=== PATIENT | male | born 1960 | race Caucasian/White ===

== ENCOUNTER 2017-03-09 23:48 | Inpatient (IN) ==
[2017-03-10 00:36] LABS: Bilirubin,Urine Negative (Negative); Blood,Urine Negative (Negative); Clarity,Urine Clear (Clear); Color,Urine Yellow (Yellow); Glucose,Urine (UA) Normal (Normal); Ketones,Urine Negative (Negative); Leukocyte Esterase,Urine Negative (Negative); Nitrite,Urine Negative (Negative); PH,Urine 5.5 pH Units (5.0-8.0); Protein,Urine Negative (Neg-Trace); Specific Gravity,Urine 1.028 (1.010-1.025); Urobilinogen,Urine Normal (Normal)
[2017-03-10 00:42] LABS: Amphetamine Screen,Urine Negative ng/mL (Cutoff=1000); Barbiturate Screen,Urine Negative ng/mL (Cutoff=200); Benzodiazepines Screen,Urine Negative ng/mL (Cutoff=200); Cannabinoid Screen,Urine Negative ng/mL (Cutoff = 50); Cocaine Screen,Urine Negative ng/mL (Cutoff= 300); Opiate Screen,Urine Negative ng/mL (Cutoff=300); Phencyclidine Screen,Urine Negative ng/mL (Cutoff=25)
[2017-03-10 00:44] LABS: Basophils # 0.1 K/mcL (0.0-0.2); Basophils % 0.9 %; Eosinophils # 0.1 K/mcL (0.0-0.6); Eosinophils % 1.7 %; Hematocrit 41.1 % (37.5-50.1); Hemoglobin 13.1 g/dL (12.9-16.9); Immature Granulocytes % 0.4 % (0-4); Lymphocytes # 1.9 K/mcL (0.6-4.6); Lymphocytes % 27.8 %; Mean Corpuscular HGB Conc 31.9 g/dL (31.6-35.5); Mean Corpuscular Hemoglobin 27.7 pg (28.0-33.3); Mean Corpuscular Volume 86.9 fL (83.0-100.0); Mean Platelet Volume 9.5 fL (9.4-12.4); Monocytes # 0.6 K/mcL (0.0-1.3); Monocytes % 8.9 %; Neutrophils # 4.2 K/mcL (1.6-8.9); Platelet Count 415 K/mcL (140-400); Red Blood Count 4.73 M/mcL (4.19-5.50); Red Cell Distribution Width 12.5 % (11.5-14.5); Segmented Neutrophils % 60.3 %
[2017-03-10 00:58] LABS: BUN/Creatinine Ratio 15 (6-26); Blood Urea Nitrogen 17 mg/dL (8-26); Carbon Dioxide 24 mEq/L (19-29); Chloride 108 mEq/L (98-109); Glucose 116 mg/dL (70-99); Osmolality,Calculated 295 (280-300); Potassium 4.1 mEq/L (3.5-4.5); Sodium 141 mEq/L (136-145); eGFR For African Americans > 60 (> 60); eGFR For Non-African Americans > 60 (> 60)
[2017-03-10 01:15] LABS: Acetaminophen < 1.0 mcg/mL (10-30); Ethanol < 10 mg/dL (0-10); Salicylate < 5.0 mg/dL (15-30)
--- NOTE | 2017-03-10 01:32 | Emergency Department Note ---
Disposition Clinical Impression: Suicidal ideation Depression Qualifiers: Depression Type: unspecified Qualified Code(s): F32.9 - Major depressive disorder, single episode, unspecified Disposition: Admitted As Inpatient Condition: Good Time of Disposition: 05:51 Psych HPI - General Chief Complaint: ED Psychiatric Symptoms Stated Complaint: "SI" Time Seen by Provider: 03/09/17 23:51 Source: patient Nursing Notes Reviewed: Yes Vital Signs Reviewed: Yes - History of Present Illness Pt complaint: suicidal ideation If medical clearance, reason: psychiatric condition Onset (ago): hour(s) Duration: constant History of similar episodes: No Improves with: none Worsens with: none Context: significant life stressor (bankruptcy) Alleged intoxication: No Associated Psychiatric Symptoms: depression, suicidal ideation Associated symptoms: Reports: denies other symptoms Traumatic symptoms: denies traumatic injury Treatments prior to arrival: none Self harm or harm to others: admits thoughts of self harm, has plan (Carbon monoxide car fumes in his garage) - Related Data Home Medications Medication Instructions Recorded Confirmed Aspirin 81 mg PO DAILY 04/24/16 04/24/16 Bupropion HCl [Wellbutrin Xl] 300 mg PO QAM 04/24/16 04/24/16 FLUoxetine HCl [PROzac] 20 mg PO DAILY 04/24/16 04/24/16 Lisinopril/Hydrochlorothiazide 1 tab PO DAILY 04/24/16 04/24/16 [Zestoretic 20-12.5 mg Tablet] Simvastatin [Zocor] 20 mg PO HS 04/24/16 04/24/16 metFORMIN [Glucophage] 500 mg PO BIDWM 04/24/16 04/24/16 Allergies Allergy/AdvReac Type Severity Reaction Status Date / Time No Known Allergies Allergy Verified 04/24/16 07:26 All systems ED: reviewed and negative except as stated. Constitutional: Denies: fever, chills Eyes: Denies: eye discharge ENT ED: Denies: throat pain Cardiovascular: Denies: palpitations Respiratory: Denies: dyspnea Gastrointestinal: Denies: abdominal pain, nausea, vomiting Genitourinary: Denies: dysuria Musculoskeletal: Denies: back pain Integumentary: Reports: rash (chronic (forearms and scalp)) Neurological: Denies: headache Psychiatric: Reports: as per HPI, depression, suicidal thoughts Endocrine: Denies: fatigue Past Medical History - Past Medical History Medical history: Reports: hyperlipidemia, hypertension Psychiatric history: Reports: depression - Social History Smoking Status: Never smoker Smokeless Tobacco Status: No Alcohol use: Reports: none Drug use: Reports: none Physical Exam HEAD: atraumatic, normocephalic EYE: EOM intact, no conjunctival injection ENT: mucous membranes moist, voice normal in character, nose normal in appearance, no rhinorrhea NECK: supple, normal ROM without stiffness CHEST: symmetric chest wall rise RESPIRATORY: Present: normal lung sounds bilaterally, no respiratory distress CARDIOVASCULAR: Regular rhythm and rate ABDOMINAL EXAM: No evidence of abdominal discomfort or peritoneal signs; Absent : guarding, rebound, distention EXTREMITIES: Grossly unremarkable on simple inspection; no deformities or decreased ROM; Absent: BLE edema BACK: Absent: CVA tenderness (R), CVA tenderness (L) NEURO: Present: alert, reflexes normal - General Limitations: no limitations General appearance: alert, in no apparent distress - Neurological Exam Neurological exam: Present: alert, oriented X3 - Psychiatric Psychiatric exam: Present: normal affect, depressed, suicidal ideation - Skin Skin exam: Present: warm, dry, intact, normal color, rash - Expanded Skin Exam Type of lesion: Present: other (Erythematous papular rash over sensitive surface of forearms, appears chronic; silvery scaly erythematous rash over her scalp consistent with psoriasis) Course Course Narrative: Patient is a 57-year-old male nonsmoker with no history of depression presents with suicidal ideation. He states he had attempted to clean out his garage to move his car and in order to fall asleep from the carbon monoxide fumes. He change his mind and decided to discuss this with her set work. Nursing reports that is sent from his work site here for psychiatric evaluation. On examination he is alert and oriented 3. Does have a dry scaly rash to scalp psoriasis over his hairline. He also has erythematous papular rash on his forearms, which he states is chronic appearing for months, related to his blood pressure medications. He states that he had stopped taking them while out of town and his rash improved. He has seen his family doctor for the rash. He denies any noncompliance with his psychiatric medications. On exam patient is alert and oriented 3. No acute distress. I will attempt to medically clear him for psychiatric evaluation. Vital Signs Temperature 97.8 F 03/09/17 23:51 Pulse Rate 87 03/09/17 23:51 Respiratory Rate 18 03/09/17 23:51 Blood Pressure 162/63 03/09/17 23:51 O2 Sat by Pulse Oximetry 98 03/09/17 23:51 Temperature 98.0 F 03/10/17 03:08 Pulse Rate 94 03/09/17 23:51 Respiratory Rate 14 03/10/17 03:08 Blood Pressure 125/81 03/10/17 03:08 O2 Sat by Pulse Oximetry 98 03/09/17 23:51 Oxygen Delivery Oxygen Delivery Room Air Psych - MDM Narrative Medical decision making narrative: Patient was medically cleared, and evaluated by [facility] staff who had discussed patient with Dr. Nelson, who advised for inpatient admission for further evaluation and stabilization. Patient was pink slipped. Vitals within normal limits. - Lab Data Result diagrams: 03/10/17 00:30 03/10/17 00:30 Lab Results 03/10/17 03/10/17 03/10/17 Range/Units 00:25 00:25 00:30 WBC 7.0 (4.3-11.1) K/mcL RBC 4.73 (4.19-5.50) M/mcL Hgb 13.1 (12.9-16.9) g/dL Hct 41.1 (37.5-50.1) % MCV 86.9 (83.0-100.0) fL MCH 27.7 L (28.0-33.3) pg MCHC 31.9 (31.6-35.5) g/dL RDW 12.5 (11.5-14.5) % Plt Count 415 H (140-400) K/mcL MPV 9.5 (9.4-12.4) fL Immature Gran % 0.4 (0-4) % Seg Neutrophils % 60.3 % Lymphocytes % 27.8 % Monocytes % 8.9 % Eosinophils % 1.7 % Basophils % 0.9 % Neutrophils # 4.2 (1.6-8.9) K/mcL Lymphocytes # 1.9 (0.6-4.6) K/mcL Monocytes # 0.6 (0.0-1.3) K/mcL Eosinophils # 0.1 (0.0-0.6) K/mcL Basophils # 0.1 (0.0-0.2) K/mcL Sodium (136-145) mEq/L Potassium (3.5-4.5) mEq/L Chloride (98-109) mEq/L Carbon Dioxide (19-29) mEq/L BUN (8-26) mg/dL Creatinine (0.72-1.25) mg/dL Est GFR ( Amer) (> 60) Est GFR (Non-Af Amer) (> 60) BUN/Creatinine Ratio (6-26) Glucose (70-99) mg/dL Calculated Osmolality (280-300) Calcium (8.6-10.8) mg/dL Urine Color Yellow (Yellow) Urine Clarity Clear (Clear) Urine pH 5.5 (5.0-8.0) pH Units Ur Specific [place] 1.028 H (1.010-1.025) Urine Protein Negative (Neg-Trace) mg/dL Urine Glucose (UA) Normal (Normal) mg/dL Urine Ketones Negative (Negative) mg/dL Urine Blood Negative (Negative) Urine Nitrite Negative (Negative) Urine Bilirubin Negative (Negative) Urine Urobilinogen Normal (Normal) mg/dL Ur Leukocyte Esterase Negative (Negative) Salicylates (15-30) mg/dL Urine Opiates Screen Negative (Mxinhj=828) ng/mL Acetaminophen (10-30) mcg/mL Ur Barbiturates Screen Negative (Jwtvqp=366) ng/mL Ur Phencyclidine Scrn Negative (Cutoff=25) ng/mL Ur Amphetamines Screen Negative (Mndrio=1968) ng/mL U Benzodiazepines Scrn Negative (Scnwgt=408) ng/mL Urine Cocaine Screen Negative (Cutoff= 300) ng/mL U Marijuana (THC) Screen Negative (Cutoff = 50) ng/mL Ethyl Alcohol (0-10) mg/dL 03/10/17 Range/Units 00:30 WBC (4.3-11.1) K/mcL RBC (4.19-5.50) M/mcL Hgb (12.9-16.9) g/dL Hct (37.5-50.1) % MCV (83.0-100.0) fL MCH (28.0-33.3) pg MCHC (31.6-35.5) g/dL RDW (11.5-14.5) % Plt Count (140-400) K/mcL MPV (9.4-12.4) fL Immature Gran % (0-4) % Seg Neutrophils % % Lymphocytes % % Monocytes % % Eosinophils % % Basophils % % Neutrophils # (1.6-8.9) K/mcL Lymphocytes # (0.6-4.6) K/mcL Monocytes # (0.0-1.3) K/mcL Eosinophils # (0.0-0.6) K/mcL Basophils # (0.0-0.2) K/mcL Sodium 141 (136-145) mEq/L Potassium 4.1 (3.5-4.5) mEq/L Chloride 108 (98-109) mEq/L Carbon Dioxide 24 (19-29) mEq/L BUN 17 (8-26) mg/dL Creatinine 1.17 (0.72-1.25) mg/dL Est GFR ( Amer) > 60 (> 60) Est GFR (Non-Af Amer) > 60 (> 60) BUN/Creatinine Ratio 15 (6-26) Glucose 116 H (70-99) mg/dL Calculated Osmolality 295 (280-300) Calcium 9.0 (8.6-10.8) mg/dL Urine Color (Yellow) Urine Clarity (Clear) Urine pH (5.0-8.0) pH Units Ur Specific [place] (1.010-1.025) Urine Protein (Neg-Trace) mg/dL Urine Glucose (UA) (Normal) mg/dL Urine Ketones (Negative) mg/dL Urine Blood (Negative) Urine Nitrite (Negative) Urine Bilirubin (Negative) Urine Urobilinogen (Normal) mg/dL Ur Leukocyte Esterase (Negative) Salicylates < 5.0 L (15-30) mg/dL Urine Opiates Screen (Zrzkod=802) ng/mL Acetaminophen < 1.0 L (10-30) mcg/mL Ur Barbiturates Screen (Oadbvt=777) ng/mL Ur Phencyclidine Scrn (Cutoff=25) ng/mL Ur Amphetamines Screen (Kudxuz=6760) ng/mL U Benzodiazepines Scrn (Vrctlf=367) ng/mL Urine Cocaine Screen (Cutoff= 300) ng/mL U Marijuana (THC) Screen (Cutoff = 50) ng/mL Ethyl Alcohol < 10 (0-10) mg/dL Psychiatric Medical Clearance - Medical Clearance Checklist Medical History: No Social History Section defined Current Vitals: Last Vital Signs Temp 98.0 F 03/10/17 03:08 Pulse 94 03/09/17 23:51 Resp 14 03/10/17 03:08 BP 125/81 03/10/17 03:08 Pulse Ox 98 03/09/17 23:51 Psychiatric Lab Panel: Drug Levels and Toxicity 03/10/17 03/10/17 00:25 00:30 Urine Opiates Screen Negative Acetaminophen < 1.0 L Ur Barbiturates Screen Negative Ur Phencyclidine Scrn Negative Ur Amphetamines Screen Negative U Benzodiazepines Scrn Negative Urine Cocaine Screen Negative U Marijuana (THC) Screen Negative Ethyl Alcohol < 10 Abnormal Labs: Abnormal lab results MCH 27.7 pg (28.0-33.3) L 03/10/17 00:30 Plt Count 415 K/mcL (140-400) H 03/10/17 00:30 Glucose 116 mg/dL (70-99) H 03/10/17 00:30 Ur Specific [place] 1.028 (1.010-1.025) H 03/10/17 00:25 Salicylates < 5.0 mg/dL (15-30) L 03/10/17 00:30 Acetaminophen < 1.0 mcg/mL (10-30) L 03/10/17 00:30 Statement of Medical Clearance: I have evaluated the patient, reviewed diagnostic information, and certify that the patient's medical condition is sufficiently stable that transfer to the psychiatric unit does not pose a significant risk of deterioration. Attestation Statement - Attestation Attestation: I, Shade Leon MD, personally evaluated this patient and discussed their management with the midlevel provicer, PAC/FIBER TECHNOLOGIST. I reviewed the midlevel provider 's note and agree with the documented findings, medical decision making, and plan of care. 57-year-old male presents to the emergency department complaining of increased depression and suicidal thoughts. On examination the patient is a well-developed obese male in no acute distress. He is alert and oriented 3. There is no cyanosis or diaphoresis. Breath sounds are clear and equal bilaterally. Heart regular rate and rhythm. Abdomen is soft and nontender with normal bowel sounds. No gross focal neurological deficits. Labs reviewed. [facility] psychiatry service was consulted and evaluated the patient in the emergency department and patient is being admitted to the psychiatry service.
[2017-03-10] MEDS ORDERED: hydrOXYzine pamoate 25 MG CAPSULE PO PRN (03:11)
[2017-03-10] MEDS ORDERED: *HR* LORazepam 1 MG TABLET PO PRN (03:11)
[2017-03-10] MEDS ORDERED: Haloperidol Lactate 5 MG/ML VIAL IM PRN (03:11)
[2017-03-10] MEDS ORDERED: MOM Conc 10 ML UD.LIQ PO PRN (03:11)
[2017-03-10] MEDS ORDERED: Mag Hydrox/Al Hydrox/Simeth 30 ML UDC PO PRN (03:11)
[2017-03-10] MEDS ORDERED: *HR* LORazepam 2 MG/ML VIAL IM PRN (03:11)
[2017-03-10] MEDS ORDERED: Ibuprofen 400 MG TABLET PO PRN (03:23)
[2017-03-10] MEDS: traZODone 50 MG TABLET PO PRN ×2 (03:53→20:53)
--- NOTE | 2017-03-10 11:27 | Psychiatry History & Physical ---
Date of Encounter: 03/10/17 Time of Encounter: 10:40 History of Present Illness Patient Stated Chief Complaint: Suicidal Medicare Admission Attestation: For traditional Medicare patients the provided hospital inpatient services are reasonable and necessary and in the case of services not specified as inpatient -only under 42 CFR 419.22 (n), that they are appropriately provided as inpatient services in accordance 42 CFR 412.3. For Critical Access Hospital the patient may reasonably be expected to be discharged or transferred to a hospital within 96 hours after admission to the Critical Access Hospital. Admitted From: Emergency Dept History of Present Illness: Mr. Mattson is a 57 year old male admitted from the emergency department for suicidal ideation with plans to kill himself by carbon monoxide or jump off a building. This is the first psychiatric admission for this patient who had no previous psychiatric treatment. Patient stressed out by multiple stressors including financial problems and bankruptcy, gambling addiction where he lost a lot of money, his son has been diagnosed and treated for cancer. Patient is and works at a factory for many years he denied any mental health issues in the past. He was given Prozac and Wellbutrin by his PCP. He noticed some changes in his behavior after taking Wellbutrin including lack of sleep and impulsivity doing gambling that he never done before. Patient does not smoke drink or use drugs. He is reporting hopelessness and suicidal thoughts. Also recently he suffered loss of a coworker who shot himself. Past Med Surg Social Fam HX - Past Medical History Medical history: hyperlipidemia, hypertension - Past Psychiatric History Psychiatric history: Reports: no psych history - Social History Smoking Status: Never smoker Smokeless Tobacco Status: No Alcohol use: none Drug use: none - Family History Mother Adopted: No Family Member Ethnicity: Non- Living Status: Still Living Hx Family Cardiac Disorders: Yes Medications & Allergies Aspirin 81 mg PO DAILY 04/24/16 [History] FLUoxetine HCl [PROzac] 20 mg PO TID 04/24/16 [History] Simvastatin [Zocor] 20 mg PO QPM 04/24/16 [History] metFORMIN [Glucophage] 500 mg PO BIDWM 04/24/16 [History] BuPROPion XL (24 HR) [Wellbutrin XL] 150 mg PO DAILY 03/10/17 [History] Lisinopril [Zestril] 40 mg PO DAILY 03/10/17 [History] 3 Allergy/AdvReac Type Severity Reaction Status Date / Time No Known Allergies Allergy Verified 04/24/16 07:26 Review of Systems Psychiatric: Reports: depression, anxiety, abnormal sleep pattern, suicidal ideation, hopelessness Mental Status Exam Patient orientation: Yes Person, Yes Time, Yes Place Level of alertness: Alert, Sedated Patient appearance: Appropriate, Well Groomed, Obese Behavior: calm, cooperative Psychomotor activity: Slowed Eye contact: Minimal Contact Mood description: Euthymic/stable, Depressed Affect description: congruent with mood, constricted Speech pattern: Normal rate, Normal rhythm, Normal tone, Slowed Speech volume: Normal Thought process: Linear, Goal Oriented Thought content: Yes Suicidal ideation, No Homicidal ideation, No Overt delusions, Yes Preoccupation Perceptual disturbances: No Auditory hallucinations, No Visual hallucinations Attention span: Capable of Focused Attention Memory description: Grossly Intact Patient reliability: Reliable Historian Intelligence estimate: Average Judgment: Limited Insight: Partial Results - Vital Signs Vital signs: Temp Pulse Resp BP Pulse Ox 98 F 99 16 118/77 98 03/10/17 09:00 03/10/17 09:00 03/10/17 09:00 03/10/17 09:00 03/09/17 23:51 - Labs Labs: Laboratory Last Values WBC 7.0 K/mcL (4.3-11.1) 03/10/17 00:30 RBC 4.73 M/mcL (4.19-5.50) 03/10/17 00:30 Hgb 13.1 g/dL (12.9-16.9) 03/10/17 00:30 Hct 41.1 % (37.5-50.1) 03/10/17 00:30 MCV 86.9 fL (83.0-100.0) 03/10/17 00:30 MCH 27.7 pg (28.0-33.3) L 03/10/17 00:30 MCHC 31.9 g/dL (31.6-35.5) 03/10/17 00:30 RDW 12.5 % (11.5-14.5) 03/10/17 00:30 Plt Count 415 K/mcL (140-400) H 03/10/17 00:30 MPV 9.5 fL (9.4-12.4) 03/10/17 00:30 Immature Gran % 0.4 % (0-4) 03/10/17 00:30 Seg Neutrophils % 60.3 % 03/10/17 00:30 Lymphocytes % 27.8 % 03/10/17 00:30 Monocytes % 8.9 % 03/10/17 00:30 Eosinophils % 1.7 % 03/10/17 00:30 Basophils % 0.9 % 03/10/17 00:30 Neutrophils # 4.2 K/mcL (1.6-8.9) 03/10/17 00:30 Lymphocytes # 1.9 K/mcL (0.6-4.6) 03/10/17 00:30 Monocytes # 0.6 K/mcL (0.0-1.3) 03/10/17:30 Eosinophils # 0.1 K/mcL (0.0-0.6) 03/10/17 00:30 Basophils # 0.1 K/mcL (0.0-0.2) 03/10/17 00:30 Sodium 141 mEq/L (136-145) 03/10/17 00:30 Potassium 4.1 mEq/L (3.5-4.5) 03/10/17 00:30 Chloride 108 mEq/L (98-109) 03/10/17 00:30 Carbon Dioxide 24 mEq/L (19-29) 03/10/17 00:30 BUN 17 mg/dL (8-26) 03/10/17 00:30 Creatinine 1.17 mg/dL (0.72-1.25) 03/10/17 00:30 Est GFR ( Amer) > 60 (> 60) 03/10/17 00: Est GFR (Non-Af Amer) > 60 (> 60) 03/10/17 00:30 BUN/Creatinine Ratio 15 (6-26) 03/10/17 00:30 Glucose 116 mg/dL (70-99) H 03/10/17 00:30 Calculated Osmolality 295 (280-300) 03/10/17 00:30 Calcium 9.0 mg/dL (8.6-10.8) 03/10/17 00:30 Urine Color Yellow (Yellow) 03/10/17 00:25 Urine Clarity Clear (Clear) 03/10/17 00:25 Urine pH 5.5 pH Units (5.0-8.0) 03/10/17 00:25 Ur Specific [place] 1.028 (1.010-1.025) H 03/10/17 00:25 Urine Protein Negative mg/dL (Neg-Trace) 03/10/17 00:25 Urine Glucose (UA) Normal mg/dL (Normal) 03/10/17 00:25 Urine Ketones Negative mg/dL (Negative) 03/10/17 00:25 Urine Blood Negative (Negative) 03/10/17 00:25 Urine Nitrite Negative (Negative) 03/10/17 00:25 Urine Bilirubin Negative (Negative) 03/10/17 00:25 Urine Urobilinogen Normal mg/dL (Normal) 03/10/17 00:25 Ur Leukocyte Esterase Negative (Negative) 03/10/17 00:25 Salicylates < 5.0 mg/dL (15-30) L 03/10/17 00:30 Urine Opiates Screen Negative ng/mL (Ndqieu=639) 03/10/17 00:25 Acetaminophen < 1.0 mcg/mL (10-30) L 03/10/17 00:30 Ur Barbiturates Screen Negative ng/mL (Iyepnm=250) 03/10/17 00:25 Ur Phencyclidine Scrn Negative ng/mL (Cutoff=25) 03/10/17 00:25 Ur Amphetamines Screen Negative ng/mL (Jdtcxw=6423) 03/10/17 00:25 U Benzodiazepines Scrn Negative ng/mL (Tmskpi=675) 03/10/17 00:25 Urine Cocaine Screen Negative ng/mL (Cutoff= 300) 03/10/17 00:25 U Marijuana (THC) Screen Negative ng/mL (Cutoff = 50) 03/10/17 00:25 Ethyl Alcohol < 10 mg/dL (0-10) 03/10/17 00:30 Assessment and Plan (1) Depression Current visit: Yes Status: Acute Plan: Admit inpatient for safety and stabilization, Close observation, Suicide Precautions per unit protocol, Encourage participation in unit milieu, Group Therapy, Monitor sleep, Monitor appetite Additional Plan: Will discontinue Wellbutrin. We will add Abilify 5 mg daily benefit side effects were discussed he is agreeable and will monitor Risks, benefits, side effects, alternatives discussed w/pt: Yes Patient agreeable to treatment: Yes Qualifiers: Depression Type: major depressive disorder Major depression recurrence: single episode Active/Remission status: currently active Major depression episode severity: severe Psychotic features: with psychotic features Qualified Code(s): F32.3 - Major depressive disorder, single episode, severe with psychotic features
[2017-03-10] MEDS: FLUoxetine 20 MG CAPSULE PO SCH ×2 (16:01→20:53)
[2017-03-10] MEDS: *HR* Metformin 500 MG TABLET PO SCH (16:01)
[2017-03-10] MEDS: ARIPiprazole 5 MG TABLET PO SCH (20:53)
[2017-03-11] MEDS: FLUoxetine 20 MG CAPSULE PO SCH ×3 (08:46→20:18)
[2017-03-11] MEDS: *HR* Metformin 500 MG TABLET PO SCH ×2 (08:47→17:09)
[2017-03-11] MEDS: Lisinopril 20 MG TABLET PO SCH (08:47)
[2017-03-11] MEDS: Aspirin 81 MG TAB.CHEW PO SCH (08:47)
--- NOTE | 2017-03-11 13:37 | Psychiatry Progress Note ---
Date of Encounter: 03/11/17 Time of Encounter: 13:00 Subjective Interval history: Patient seen for follow-up. He reports feeling better, this depressed and denied any suicidal thoughts. He reports improved sleep and his energy level improving. He attended group activities and activity participating. He denies any side effects to medication. He has been visited by his family and they are very supportive. I discussed with him medication treatments and benefits and side effects and expectations from medication and he seemed to be receptive. He is grateful and appreciated being in the hospital. Review of Systems Psychiatric: Reports: depression, anxiety, abnormal sleep pattern, suicidal ideation, hopelessness Objective: Exam Patient orientation: Yes Person, Yes Time, Yes Place Level of alertness: Alert Patient appearance: Appropriate, Well Groomed, Obese Behavior: calm, cooperative Psychomotor activity: Normal Eye contact: Maintains Eye Contact Mood description: Euthymic/stable, Depressed Affect description: congruent with mood, euthymic Speech pattern: Normal rate, Normal rhythm, Normal tone Speech volume: Normal Thought process: Linear, Goal Oriented Thought content: No Suicidal ideation, No Homicidal ideation, No Overt delusions Perceptual disturbances: No Auditory hallucinations, No Visual hallucinations Judgment: Fair Insight: Partial Results - Vital Signs Vital Signs: Temp Pulse Resp BP Pulse Ox 97.4 F L 116 16 118/79 98 03/11/17 09:28 03/11/17 09:28 03/11/17 09:28 03/11/17 09:28 03/09/17 23:51 Assessment and Plan (1) Depression Current visit: Yes Status: Acute Plan: Continue hospitalization, Close observation, Suicide Precautions per unit protocol, Encourage participation in unit milieu, Group Therapy, Monitor sleep, Monitor appetite Risks, benefits, side effects, alternatives discussed w/pt: Yes Patient agreeable to treatment: Yes Qualifiers: Depression Type: major depressive disorder Major depression recurrence: single episode Active/Remission status: currently active Major depression episode severity: severe Psychotic features: with psychotic features Qualified Code(s): F32.3 - Major depressive disorder, single episode, severe with psychotic features Consult Discharge Plan - Plan Referrals: NONE,PCP [Primary Care Provider] -
[2017-03-11] MEDS: traZODone 50 MG TABLET PO PRN (20:18)
[2017-03-11] MEDS: ARIPiprazole 5 MG TABLET PO SCH (20:31)
[2017-03-12] MEDS: FLUoxetine 20 MG CAPSULE PO SCH ×3 (08:26→21:09)
[2017-03-12] MEDS: *HR* Metformin 500 MG TABLET PO SCH ×2 (08:26→16:56)
[2017-03-12] MEDS: Lisinopril 20 MG TABLET PO SCH (08:27)
[2017-03-12] MEDS: Aspirin 81 MG TAB.CHEW PO SCH (08:27)
--- NOTE | 2017-03-12 13:50 | Psychiatry Progress Note ---
Date of Encounter: 03/12/17 Time of Encounter: 13:48 Subjective Interval history: Patient is seen for follow-up. Nursing staff reports he has not had episodes yesterday of irritability, he reported that he did not sleep last night due to loud snoring of patient. He will continue to feel better and denied any suicidal ideation and was not motivated to participate in his outpatient treatment after discharge. He appreciates support from his family and his neighbor's. Review of Systems Psychiatric: Reports: depression, anxiety, abnormal sleep pattern, suicidal ideation, hopelessness Objective: Exam Patient orientation: Yes Person, Yes Time, Yes Place Level of alertness: Alert Patient appearance: Appropriate, Unkempt Behavior: calm, cooperative, anxious Psychomotor activity: Normal Eye contact: Maintains Eye Contact Mood description: Euthymic/stable, Labile Affect description: congruent with mood, full range Speech pattern: Normal rate, Normal rhythm, Normal tone Speech volume: Normal Thought process: Linear, Goal Oriented Thought content: No Suicidal ideation, No Homicidal ideation, No Overt delusions Perceptual disturbances: No Auditory hallucinations, No Visual hallucinations Judgment: Fair Insight: Partial Results - Vital Signs Vital Signs: Temp Pulse Resp BP Pulse Ox 98.2 F 93 18 126/82 98 03/12/17 08:51 03/12/17 08:51 03/12/17 08:51 03/12/17 08:51 03/09/17 23:51 Assessment and Plan (1) Depression Current visit: Yes Status: Acute Plan: Continue hospitalization, Close observation, Suicide Precautions per unit protocol, Encourage participation in unit milieu, Group Therapy, Monitor sleep, Monitor appetite Risks, benefits, side effects, alternatives discussed w/pt: Yes Patient agreeable to treatment: Yes Qualifiers: Depression Type: major depressive disorder Major depression recurrence: single episode Active/Remission status: currently active Major depression episode severity: severe Psychotic features: with psychotic features Qualified Code(s): F32.3 - Major depressive disorder, single episode, severe with psychotic features Consult Discharge Plan - Plan Referrals: [facility] [Other] (The above appointment is with Susan Anand for outpatient mental health counseling services. Your EAP benefit provides 5 sessions at no cost to you. Please call your EAP program at PRIOR TO THIS APPOINTMENT for authroization.) [facility] [employer] [place] [Outside] - 04/01/17 1:00 pm (The above appointment is with Cristin Luis for outpatient psychiatric assessment and medication management services. Please arrive 15 minutes early to complete paperwork. Please bring your insurance card, photo ID and medications in their original bottles. If you do not have insurance, bring proof of income to apply for the sliding fee scale. If you are unable to keep this appointment, 24 hour business notice of cancellation is expected. This is the first available appointment. You may contact the office regularly to check for cancellations that may allow you to be seen sooner. ) [facility] [Outside[facility] - 03/16/17 10:00 am (The above appointment is with Navin Young for outpatient gambling addiction counseling services. If you are unable to keep this appointment, please call Bill directly on his cell phone: [phone].)
[2017-03-12] MEDS: ARIPiprazole 5 MG TABLET PO SCH (21:07)
[2017-03-12] MEDS: traZODone 50 MG TABLET PO PRN (21:08)
[2017-03-13] MEDS: Lisinopril 20 MG TABLET PO SCH (09:10)
[2017-03-13] MEDS: *HR* Metformin 500 MG TABLET PO SCH ×2 (09:10→15:22)
[2017-03-13] MEDS: Aspirin 81 MG TAB.CHEW PO SCH (09:10)
[2017-03-13] MEDS: FLUoxetine 20 MG CAPSULE PO SCH ×3 (09:10→21:17)
--- NOTE | 2017-03-13 12:58 | Psychiatry Progress Note ---
Date of Encounter: 03/13/17 Time of Encounter: 12:30 Subjective Interval history: Patient is seen for follow-up. She reports improved sleep, denies suicidal ideation, he appreciated the family and friends support. He is showing improved insights into his gambling addiction and determined to work on with his outpatient counseling. Tolerating medication and denied any side effects and anxious about going back to work. Review of Systems Psychiatric: Reports: depression, anxiety, abnormal sleep pattern, suicidal ideation, hopelessness Objective: Exam Patient orientation: Yes Person, Yes Time, Yes Place Level of alertness: Alert Patient appearance: Appropriate, Well Groomed Behavior: calm, cooperative, anxious Psychomotor activity: Normal Eye contact: Maintains Eye Contact Mood description: Euthymic/stable Affect description: congruent with mood, full range Speech pattern: Normal rate, Normal rhythm, Normal tone Speech volume: Normal Thought process: Linear, Goal Oriented Thought content: No Suicidal ideation, No Homicidal ideation, No Overt delusions Perceptual disturbances: No Auditory hallucinations, No Visual hallucinations Judgment: Fair Insight: Partial Results - Vital Signs Vital Signs: Temp Pulse Resp BP Pulse Ox 97.5 F L 121 16 130/78 98 03/13/17 09:00 03/13/17 09:00 03/13/17 09:00 03/13/17 09:00 03/09/17 23:51 Assessment and Plan (1) Depression Current visit: Yes Status: Acute Plan: Continue hospitalization, Close observation, Suicide Precautions per unit protocol, Encourage participation in unit milieu, Group Therapy, Monitor sleep, Monitor appetite Risks, benefits, side effects, alternatives discussed w/pt: Yes Patient agreeable to treatment: Yes Qualifiers: Depression Type: major depressive disorder Major depression recurrence: single episode Active/Remission status: currently active Major depression episode severity: severe Psychotic features: with psychotic features Qualified Code(s): F32.3 - Major depressive disorder, single episode, severe with psychotic features Consult Discharge Plan - Plan Referrals: [facility] [Other] (The above appointment is with Susan Anand for outpatient mental health counseling services. Your EAP benefit provides 5 sessions at no cost to you. Please call your EAP program at PRIOR TO THIS APPOINTMENT for authroization.) Wendel [facility] [employer] [place] [Outside] - 04/01/17 1:00 pm (The above appointment is with Cristin Luis for outpatient psychiatric assessment and medication management services. Please arrive 15 minutes early to complete paperwork. Please bring your insurance card, photo ID and medications in their original bottles. If you do not have insurance, bring proof of income to apply for the sliding fee scale. If you are unable to keep this appointment, 24 hour business notice of cancellation is expected. This is the first available appointment. You may contact the office regularly to check for cancellations that may allow you to be seen sooner. ) Josselyn [facility] [Outside] - 03/16/17 10:00 am (The above appointment is with Navin Young for outpatient gambling addiction counseling services. If you are unable to keep this appointment, please call Navin directly on his cell phone: [phone].)
[2017-03-13] MEDS: ARIPiprazole 5 MG TABLET PO SCH (21:17)
[2017-03-13] MEDS: traZODone 50 MG TABLET PO PRN (21:19)
[2017-03-14] MEDS: Aspirin 81 MG TAB.CHEW PO SCH (08:28)
[2017-03-14] MEDS: Lisinopril 20 MG TABLET PO SCH (08:28)
[2017-03-14] MEDS: FLUoxetine 20 MG CAPSULE PO SCH (08:28)
[2017-03-14] MEDS: *HR* Metformin 500 MG TABLET PO SCH (08:29)
[2017-03-14 08:31] VITALS: BP 129/81
--- NOTE | 2017-03-14 10:37 | Discharge Summary ---
Date of Encounter: 03/14/17 Time of Encounter: 10:31 Diagnosis - Discharge Diagnosis (1) Depression Status: Acute Qualifiers: Depression Type: major depressive disorder Major depression recurrence: single episode Active/Remission status: currently active Major depression episode severity: severe Psychotic features: with psychotic features Qualified Code(s): F32.3 - Major depressive disorder, single episode, severe with psychotic features Medications - Discharge Medications Prescriptions: ARIPiprazole [Abilify] 5 mg PO HS #30 tablet traZODone [TraZODone] 50 mg PO HS PRN #30 tablet PRN Reason: Insomnia Aspirin 81 mg PO DAILY 04/24/16 [History] FLUoxetine HCl [Prozac] 20 mg PO TID 04/24/16 [History] Simvastatin [Zocor] 20 mg PO QPM 04/24/16 [History] metFORMIN [Glucophage] 500 mg PO BIDWM 04/24/16 [History] Lisinopril [Zestril] 40 mg PO DAILY 03/10/17 [History] ARIPiprazole [Abilify] 5 mg PO HS #30 tablet 03/14/17 [Rx] traZODone [TraZODone] 50 mg PO HS PRN #30 tablet 03/14/17 [Rx] 3 Allergy/AdvReac Type Severity Reaction Status Date / Time No Known Allergies Allergy Verified 04/24/16 07:26 Provider Date of admission: 03/10/17 03:01 Primary care physician: PCP NONE Discharging clinician: Gopi Nelson Assessment and Plan - Patient/Caregiver Discharge Instructions Activity: resume usual activities as tolerated Diet: regular diet - Follow up Plan Follow up with: [facility] [Other] (The above appointment is with Susan Anand for outpatient mental health counseling services. Your EAP benefit provides 5 sessions at no cost to you. Please call your EAP program at PRIOR TO THIS APPOINTMENT for authroization.) Eldon [facility] [employer] [address] [place] [Outside] - 04/01/17 1:00 pm (The above appointment is with Cristin Luis for outpatient psychiatric assessment and medication management services. Please arrive 15 minutes early to complete paperwork. Please bring your insurance card, photo ID and medications in their original bottles. If you do not have insurance, bring proof of income to apply for the sliding fee scale. If you are unable to keep this appointment, 24 hour business notice of cancellation is expected. This is the first available appointment. You may contact the office regularly to check for cancellations that may allow you to be seen sooner. ) Josselyn [facility] [Outside] - 03/16/17 10:00 am (The above appointment is with Navin Young for outpatient gambling addiction counseling services. If you are unable to keep this appointment, please call Bill directly on his cell phone: [phone].) Functional capacity at discharge: independent ambulation Overall status at discharge: Stable Disposition: Home, Self-Care Hospital Course Hospital course: Mr. Mattson is a 57 year old male admitted from the emergency department depression and suicidal ideation. For details on admission please see H&P. On the unit patient was taken off Wellbutrin and started on Abilify 5 mg daily. Patient reported improved sleep and denies suicidal ideation he was actively participating in groups and activities. Family and friends visited the patient and he had a good support system. Patient was educated and advised about compulsive gambling and his outpatient plans included counseling for this issue. On discharge patient was medically stable, future oriented and nonsuicidal and tolerated the medication without any side effects. Discharge plans were completed by clinical social work therapist including specialized counseling for gambling. Patient return to work plan was discussed with him and his anxious to return to work. - Time Spent with Patient Total time spent providing and/or coordinating discharge services: Greater than 30 minutes Quality - Multiple Antipsychotics Patient discharged on 2 or more antipsychotic medications: No Procedures - Procedures Procedures: Medication Management, Crisis Stabilization, Supportive Therapy, Group Therapy, Psychoeducational Therapy Mental Status Exam - Mental Status Exam Patient orientation: Yes Person, Yes Time, Yes Place Level of alertness: Alert Patient appearance: Appropriate, Unkempt Behavior: calm, cooperative Psychomotor activity: Normal Eye contact: Maintains Eye Contact Mood description: Euthymic/stable Affect description: congruent with mood, full range Speech pattern: Normal rate, Normal rhythm, Normal tone Speech Volume: Normal Thought process: Linear, Goal Oriented Thought Content: No Suicidal ideation, No Homicidal ideation, No Overt delusions Perceptual Disturbances: No Auditory hallucinations, No Visual hallucinations Judgment: Limited Insight: Partial
== END 2017-03-14 12:00 | disposition home or self-care (01) | DRG 885 ==
LOC: EMEROO 23:48 → 1ANU 03-10 03:01
PROVIDERS: ADMIT Psychiatry & Neurology Psychiatry; ATTEND Psychiatry & Neurology Psychiatry